=== PATIENT | male | born 1975 | race Caucasian/White ===

== ENCOUNTER 2020-04-02 12:25 | Inpatient (IN) | payer MEDICAID ==
[~2020-04-02] VITALS: Ht 180.3 cm; Wt 105.7 kg
[~2020-04-02 12:25] MED LIST: BUSP10TA10 PO; DIAZ10TA4 PO; ESCI20TA25 PO; GABA300C PO; OLAN2.5T3 PO; PANT-47 PO
[2020-04-02] MEDS ORDERED: NICO-631 TD (13:10)
[2020-04-02] MEDS ORDERED: metoprolol tartrate tablet PO (13:10)
[2020-04-02] MEDS ORDERED: acetaminophen 325mg tablet PO PRN ×2 (14:10)
[2020-04-02] MEDS ORDERED: NICOTINE POLACRILEX 2 MG LOZENGE BC PRN (14:10)
[2020-04-02] MEDS ORDERED: mag hydrox/Alum hydrox/simeth 30ml oral suspension PO PRN (14:10)
[2020-04-02] MEDS ORDERED: loperamide 2mg capsule PO PRN (14:10)
[2020-04-02] MEDS ORDERED: traZODone 50mg tablet PO PRN (14:10)
[2020-04-02] MEDS ORDERED: magnesium hydroxide 30ml (MOM) UD suspension PO PRN (14:10)
[2020-04-02 14:31] VITALS: BP 127/85
[2020-04-02 14:34] VITALS: BP 127/85
--- NOTE | 2020-04-02 16:51 | NUR ---
ADMIT NOTE Legal hold: 515 DTS Why are they here: Pt admitted at 1415 on 5150 for DTS. Pt is endorsing SI, Anxiety, and Depression, wanting to kill himself via OD or jumping off a bridge. Pt states he has never felt SI before even though he has a hx of a couple MH hospitalizations r/t run ins with the law in [place], they have a different way of doing things there and I spent some time in detention for minor crimes but was also hospitalized. Pt states he started feeling suicidal when living with his Dad in [place]; the primary trigger being ruminating about his relationship with his mother and the falling out he has with her. 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 He feels guilty about letting her down. He got out of the hospital in [place], moved to [place] then moved to [place] with friends but SI progressed and I just dont feel like myself anymore. I dont feel anything aside from irritability sometimes, my brain feels fuzzy, my memory is poor. And I am hearing voices saying things about me. Pt brought himself to the hospital seeking help for his emotional state. S/I, H/I:+SI A/VH: +AH, People having conversations about me Sleep: Reports Insomnia and Difficulty staying asleep ADL's: Independent Mental Status Exam Appearance: Freshly showered, wearing unit scrubs Eye contact: Good Speech: Normal Mood: Depressed, Anxious Affect: Blunted Thought process: Linear Thought Content: Feeling not himself Cognition: A/Ox4 Insight: Fair Judgment: Fair PRN's used: None MH Hx: Depression, Anxiety, R/O Bipolar "They were considering it but i don't have a formal diagnosis" Rec. Drug Use: No Alcohol Tobacco - Heavy, Daily Smoker THC, last use a month ago, Infrequent Meth - Couple years ago Opiates - Decade ago Support: Friends in [place], and [place] Estranged from family Medical Hx: HTN, Hyperlipidemia, GERD, Lactose Intolerant Recent [place] workup this visit prior to admit - r/t abnormal EKG, all other diagnostics WNL Addendum: 04/02/20 at 1717 by Vesta Goldman RN R Forearm Scars: Healed scars look like self-inflicted lacerations, but pt states he has never cut himself. "I was trying to harm my cat and she scratched me."
[2020-04-02] MEDS: LORazepam 1 MG tablet PO PRN (17:20)
[2020-04-02 19:00] VITALS: BP 141/89
--- NOTE | 2020-04-03 00:50 | NUR ---
Nursing Progress Note: Legal hold: 5150 Client on voluntary/involuntary status for DTS. Report received from nurseSerg with use of SBAR. Why are they here: Pt admitted at 1415 on 5150 for DTS. Pt is endorsing SI, Anxiety, and Depression, wanting to kill himself via OD or jumping off a bridge. Pt states he has never felt SI before even though he has a hx of a couple MH hospitalizations r/t run ins with the law in [place], they have a different way of doing things there and I spent some time in residential for minor crimes but was also hospitalized. Pt states he started feeling suicidal when living with his Dad in [place]; the primary trigger being ruminating about his relationship with his mother and the falling out he has with her. Diagnosis/presenting symptoms: Depression Assessment What has happened this shift: Pt isolated to his room for the entire shift. Pt was cooperative for all assessments and did not have any behavior issues. When asked how he was feeling, pt responded, pretty regretful. Pt did not have any hs meds scheduled and did not require any prns. S/I, H/I: denies A/VH: denies Sleep:see sleep assessment ADL's: independent Group attendance: n/a Were meds taken: yes Any med S/E: no Mental Status Exam Appearance:wnl, lying in bed in scrubs Eye contact: good Behavior: calm, cooperative Speech: clear, normal rate Mood: depressed Affect: congruent Thought process:feeling regretful Thought Content: regrets Cognition: a/o x4 Insight: fair Judgment: fair Interventions PRN's used: n/a Therapeutic interventions: 1:1 assessment, therapeutic communication, active listening, maintained a safe and therapeutic environment, medication administration/education/monitoring, monitoring of labs, behavior monitoring and intervention as needed, limit setting, redirection, positive reinforcement, and maintained Q 15 minute safety checks. Restraints/seclusion/emergency medication: N/A Justification of Continued Inpatient Treatment: The patient is continuing to be evaluated by the psychiatry staff. Self harm risk and external stressors to be evaluated.
[2020-04-03] MEDS: nicotine 14mg patch - 24hr TD SCH (07:50)
[2020-04-03] MEDS: LORazepam 1 MG tablet PO PRN ×3 (07:50→21:02)
[2020-04-03 08:00] VITALS: BP 152/91
--- NOTE | 2020-04-03 09:12 | NUR ---
PATIENT'S CAR IN PARKING STRUCTURE The patient was worried his car which he parked in the parking structure across the street may be towed. Hospital Security was called and informed and also [employer] [phone] (who also patrol the structure.) The Red Jenn Renegade with [employer] plates was seen on security cameras in the structure on the 2nd floor. 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 The patient was informed of phone calls made.
--- NOTE | 2020-04-03 10:30 | NUR ---
Cardiac diet consult: Likely consult error. Patient's lipid panel from 04/01 is WNL with the exception of LDL which is slightly elevated at 103 mg/dL. Education not warranted at this time. Malnutrition consult: Pt reports 24-33 lb wt loss with decreased appetite per malnutrition risk screen with RN. Pt just recently transferred from the floors where pt denied wt loss or decreased appetite per malnutrition risk screen with RN 04/01. Current documented scaled wt is 135% IBW. Pt eating well with 75-100% PO intake since 03/31. Pt with no documented edema or decrease in muscle strength. Per H&P 03/31 pt appears WDWN. Pt currently does not meet criteria for malnutrition. Will continue to follow. Addendum: 04/03/20 at [address] Amended: Links added.
[2020-04-03 11:00] LABS: HEMOGLOBIN A1C 5.8 % (4.5-6.2)
[2020-04-03 11:02] LABS: CHOL/HDL RATIO 3.9 (0.00-4.99); CHOLESTEROL 161 MG/DL (0-200); HDL CHOLESTEROL 41 MG/DL (35-60); LDL CHOLESTEROL 96 MG/DL (50-100); TRIGLYCERIDES 138 MG/DL (20-135)
--- NOTE | 2020-04-03 14:31 | NUR ---
NURSING PROGRESS NOTE Legal hold: 5150 Client on involuntary status for DTS. Report received from BARRERA Euceda with use of SBAR Why are they here: Pt admitted at 1415 on 5150 for DTS. Pt is endorsing SI, Anxiety, and Depression, wanting to kill himself via OD or jumping off a bridge. Pt states he has never felt SI before even though he has a hx of a couple MH hospitalizations r/t run ins with the law in [place], they have a different way of doing things there and I spent some time in [facility] for minor crimes but was also hospitalized. Pt states he started feeling suicidal when living with his Dad in [place]; the primary trigger being ruminating about his relationship with his mother and the falling out he has with her. Assessment What has happened this shift: Asleep at change of shift. Cooperative with VS and 1:1 assessment. Reports having CHAU "for years." Recently was in [place] with his mother then went to [place] to be with his father then came to [place] to visit a friend when he became quite depressed and had suicidal thoughts, chest pains and palpitations. He presented to ED and was admitted to PCU, cardiac ruled out and came to [facility] for depression and anxiety. He has NO hallucinations. Reports mild passive suicidal thoughts but c/o increased anxiety when around others like his peers on unit. Feels "anxious at meal times and with lots of people talking", and retreats to his room. C/O mild constipation for which he was given MOM, and given Ativan 1mg x2 today for anxiety. The patient has a Master's Degree in Organizational Leadership from [employer]. He is polite and cooperative. Per Dr. Denny he will be treated for CHAU. S/I, H/I: denies A/VH: denies Sleep:see napped ADL's: independent Group attendance: yes, process group Were meds taken: yes Any med S/E: no Mental Status Exam Appearance: neat and clean Eye contact: good Behavior: calm, cooperative with some anxiety Speech: clear, soft Mood: depressed Affect: mildly anxious Thought process: linear Thought Content: getting treated and feeling better Cognition: Alert Insight: fair Judgment: fair Interventions PRN's used: MOM, Ativan x2 Therapeutic interventions: 1:1 assessment, therapeutic communication, established rapport, active listening, maintained a safe and therapeutic environment, medication administration/education/monitoring, monitoring of labs, behavior monitoring and intervention as needed, encouraged to attend groups and maintained q15m safety checks. Restraints/seclusion/emergency medication: None Justification of Continued Inpatient Treatment: Requires interruption of current crisis, medication adjustments, and a safe and supportive environment to prevent readmission.
[2020-04-03 19:00] VITALS: BP 144/92
[2020-04-03] MEDS: traZODone 50mg tablet PO PRN (21:35)
[2020-04-03] MEDS: clonazePAM 0.5mg tablet PO SCH (21:35)
[2020-04-03] MEDS: pantoprazole 40mg Tablet.DR PO SCH (21:35)
[2020-04-03] MEDS: mirtazapine 15mg tablet PO SCH (21:35)
--- NOTE | 2020-04-04 01:26 | NUR ---
NURSING PROGRESS NOTE Legal hold: 5150 Client on involuntary status for DTS. Report received from BARRERA Johnson with use of SBAR Why are they here: Pt admitted on a 5150 for DTS. Pt is endorsing SI, Anxiety, and Depression, wanting to kill himself via OD or jumping off a bridge. Pt states he has never felt SI before even though he has a hx of a couple MH hospitalizations r/t run ins with the law in [place], they have a different way of doing things there and I spent some time in intermediate for minor crimes but was also hospitalized. Pt states he started feeling suicidal when living with his Dad in [place]; the primary trigger being ruminating about his relationship with his mother and the falling out he has with her. Assessment What has happened this shift: Pt in bed asleep at start of shift. Woke up later but declined to go for snack. He does not seem to interact with other pts. Pt concerned about medications. He became very anxious and paced in llanes. He holds his body in a very stiff and unnatural stance. He was concerned about medications that Dr. Denny said he would get but had not been ordered yet. Dr. Denny ordered medications for the pt and they were administered by 2129. Pt educated on medications he verbalized understanding. He went to bed and went to sleep. Is still sleeping at this time. S/I, H/I: denies A/VH: denies Sleep: Asleep at this time ADL's: independent Group attendance: NA Were meds taken: yes Any med S/E: no Mental Status Exam Appearance: neat and clean Eye contact: good Behavior: cooperative with some anxiety Speech: clear, soft Mood: depressed Affect: anxious Thought process: linear Thought Content: Medications Insight: fair Judgment: fair Interventions PRN's used: Ativan x1 Therapeutic interventions: 1:1 assessment, therapeutic communication, established rapport, active listening, maintained a safe and therapeutic environment, medication administration/education/monitoring, monitoring of labs, behavior monitoring and intervention as needed, encouraged to attend groups and maintained q15m safety checks. Restraints/seclusion/emergency medication: None Justification of Continued Inpatient Treatment: Requires interruption of current crisis, medication adjustments, and a safe and supportive environment to prevent readmission.
[2020-04-04 07:21] VITALS: BP 131/89
[2020-04-04] MEDS: clonazePAM 0.5mg tablet PO SCH ×2 (08:20→20:49)
[2020-04-04] MEDS: pantoprazole 40mg Tablet.DR PO SCH (08:20)
[2020-04-04] MEDS: nicotine 14mg patch - 24hr TD SCH (08:21)
[2020-04-04] MEDS ORDERED: tizanidine 4mg tablet PO PRN (09:50)
[2020-04-04 12:00] VITALS: BP 129/83
[2020-04-04] MEDS: propranolol 10mg tablet PO SCH ×2 (12:10→20:49)
[2020-04-04] MEDS: LORazepam 1 MG tablet PO PRN ×2 (15:16→20:50)
--- NOTE | 2020-04-04 16:38 | NUR ---
Nursing Progress Note: Legal hold: 515 Client on involuntary status for DTS Report received from nurse with use of SBAR: Kelli Reyna RN Why are they here: Pt admitted on 5150 for DTS. Pt is endorsing SI, Anxiety, and Depression, wanting to kill himself via OD or jumping off a bridge. Pt states he has never felt SI before even though he has a hx of a couple MH hospitalizations r/t run ins with the law in [place], they have a different way of doing things there and I spent some time in [facility] for [facility] but was also hospitalized. Pt states he started feeling suicidal when living with his dad in [place]; the primary trigger being ruminating about his relationship with his mother and the falling out he has with her. Assessment What has happened this shift: Received pt. in bed sleeping at the beginning of the shift, he was awoken by staff to attend breakfast in the Group Room and afterwards retreated back to bed where he continued to isolate throughout much of the day. This wrier introduced self and attempted to establish rapport, pt. presents as cooperative, fatigued, anxious, withdrawn, and guarded. 1:1 completed at bedside, his speech is soft and affect appears flat. Pt. denies any S/I, HI, or A/V/PA, however reports ongoing depression and anxiety. When this development writer attempted to question pt. further he appears to minimize and stated, "I just went through some mental health stuff. I just want to lay in bed and not be around anyone." Pt. admits that he just recently started Clonazepam and he is unsure if it is helping his anxiety yet. Pt. requests PRN Tylenol r/t pain in his shoulders and upper back due to laying in bed. He is provided encouragement to participate on the unit and is observed to be up pacing in the hallway in the afternoon after requesting PRN Ativan. Will continue to monitor. Dr. Denny gave new order for Propranolol 10mg TID r/t pt's history of HTN and anxiety, will endorse to Noc shift. S/I, H/I: Denies A/VH: Denies, does not appear internally preoccupied Sleep: Pt. reports he slept well, sleep hours are 7, and he naps intermittently throughout the shift ADL's: Requires encouragement Group attendance: N/A Were meds taken: Yes Any med S/E: None Mental Status Exam Appearance: Neat and appropriately dressed Eye contact: Good Behavior: Cooperative, fatigued, anxious, withdrawn, and guarded Speech: Soft, responds minimally to questions Mood: Guarded and anxious Affect: Flat Thought process: Poverty of thought with possible thought blocking Thought Content: Preoccupation with anxiety and hopelessness Cognition: A& O X4 Insight: Poor Judgment: Poor Interventions PRN's used: Ativan, Tylenol and Zanaflex Therapeutic interventions: Introduced self and attempted to establish rapport, maintained a safe and therapeutic environment, ensured contract for safety, provided clear and simple instructions, encouraged independent performance of ADLs and participation on the unit, and maintained Q 15min safety checks. Restraints/seclusion/emergency medication: N/A Justification of Continued Inpatient Treatment: Per Dr. Denny, pt. continues to require medication adjustments and a safe and supportive environment.
[2020-04-04 20:10] VITALS: BP 114/82
[2020-04-04] MEDS: mirtazapine 15mg tablet PO SCH (20:50)
[2020-04-04] MEDS: traZODone 50mg tablet PO PRN (20:50)
--- NOTE | 2020-04-05 02:58 | NUR ---
NURSING PROGRESS NOTE Legal hold: 5150 Client on involuntary status for DTS. Report received from RN with use of SBAR Why are they here: Pt admitted on a 5150 for DTS. Pt is endorsing SI, Anxiety, and Depression, wanting to kill himself via OD or jumping off a bridge. Pt states he has never felt SI before even though he has a hx of a couple MH hospitalizations r/t run ins with the law in [place], they have a different way of doing things there and I spent some time in intermediate for minor crimes but was also hospitalized. Pt states he started feeling suicidal when living with his Dad in [place]; the primary trigger being ruminating about his relationship with his mother and the falling out he has with her. Assessment What has happened this shift: Pt up pacing slowly in halls at start of shift. Came to group room for snack but did not interact with other pts. Spent most of shift isolated in room or pacing in halls. Pt presents as hopeless. Pt said he wants to go home. Encouraged to stay until he improves and is not having SI. Pt said "I am always suicidal." When told we hope we can help him to not feel that way he shrugged his shoulders. He was cooperative with care took all medications is sleeping at this time. S/I, H/I: denies A/VH: denies Sleep: Asleep at this time ADL's: independent Group attendance: NA Were meds taken: yes Any med S/E: no Mental Status Exam Appearance: neat and clean Eye contact: good Behavior: cooperative with some anxiety Speech: clear, soft Mood: depressed hopeless Affect: depressed Thought process: linear Thought Content: wants to go home Insight: poor Judgment: poor Interventions PRN's used: Trazodone Therapeutic interventions: 1:1 assessment, therapeutic communication, established rapport, active listening, maintained a safe and therapeutic environment, medication administration/education/monitoring, monitoring of labs, behavior monitoring and intervention as needed, encouraged to attend groups and maintained q15m safety checks. Restraints/seclusion/emergency medication: None Justification of Continued Inpatient Treatment: Requires interruption of current crisis, medication adjustments, and a safe and supportive environment to prevent readmission.
[2020-04-05] MEDS: LORazepam 1 MG tablet PO PRN ×2 (06:37→14:20)
[2020-04-05 07:33] VITALS: BP 128/86
[2020-04-05] MEDS: pantoprazole 40mg Tablet.DR PO SCH (08:34)
[2020-04-05] MEDS: propranolol 10mg tablet PO SCH ×3 (08:34→20:19)
[2020-04-05] MEDS: clonazePAM 0.5mg tablet PO SCH ×2 (08:34→20:18)
[2020-04-05] MEDS: tizanidine 4mg tablet PO PRN (08:35)
[2020-04-05] MEDS: nicotine 14mg patch - 24hr TD SCH (08:35)
[2020-04-05 12:44] VITALS: BP 112/77
--- NOTE | 2020-04-05 16:03 | NUR ---
Nursing Progress Note: Legal hold: 5250 Client on involuntary status for DTS Report received from nurse with use of SBAR: BARRERA Alcantara Why are they here: Pt admitted on 5150 for DTS. Pt is endorsing SI, Anxiety, and Depression, wanting to kill himself via OD or jumping off a bridge. Pt states he has never felt SI before even though he has a hx of a couple MH hospitalizations r/t run ins with the law in [place], they have a different way of doing things there and I spent some time in group home for minor crimes but was also hospitalized. Pt states he started feeling suicidal when living with his dad in [place]; the primary trigger being ruminating about his relationship with his mother and the falling out he has with her. Assessment What has happened this shift: Received pt. up in the hallway at the beginning of the shift, he approached this gag writer to request PRN Ativan for anxiety. When questioned by this gag writer regarding the cause of his anxiety, pt. gave a vague response and stated, "I just woke up anxious." PRN Ativan administered, and pt. was able to return to bed and was awoken later by staff to attend breakfast in the Group Room. Afterwards, pt. retreated back to bed where he continued to isolate throughout much of the morning. 1:1 completed at bedside, pt. continues to present as guarded, withdrawn, and hopeless. He denies any S/I, but admits to ongoing depression and anxiety. Pt. states, "The depression and anxiety go [id number]. I'm just feeing overwhelmed." Pt. reports a reduced appetite and some stomach upset, PRN Maalox administered with effectiveness. He does however report that he is sleeping much better. Pt. continues to report pain in his bilateral shoulders and upper back, PRN Zanaflex administered with effectiveness. Pt. is presented with his 5250 in the afternoon, and is then observed to up pacing the hallway interacting minimally with others. S/I, H/I: Denies A/VH: Denies, does not appear internally preoccupied Sleep: Pt. reports he slept well, sleep hours are 6.5, and he naps intermittently throughout the morning ADL's: Requires encouragement Group attendance: No Were meds taken: Yes Any med S/E: None Mental Status Exam Appearance: Neat and appropriately dressed Eye contact: Good Behavior: Cooperative, fatigued, anxious, withdrawn, and guarded Speech: Soft, responds minimally to questions Mood: Guarded and anxious Affect: Flat Thought process: Poverty of thought with possible thought blocking Thought Content: Preoccupation with anxiety and hopelessness Cognition: A& O X4 Insight: Poor Judgment: Poor Interventions PRN's used: AtivanX2 and Zanaflex Therapeutic interventions: Maintained a safe and therapeutic environment, ensured contract for safety, provided clear and simple instructions, encouraged independent performance of ADLs and participation on the unit, provided active listening and positive encouragement, presented with 5250 hold, and maintained Q 15min safety checks. Restraints/seclusion/emergency medication: N/A Justification of Continued Inpatient Treatment: Per Dr. Denny, pt. continues to require medication adjustments and a safe and supportive environment.
[2020-04-05 19:58] VITALS: BP 129/83
[2020-04-05] MEDS: mirtazapine 15mg tablet PO SCH (20:18)
--- NOTE | 2020-04-05 21:40 | NUR ---
Asked for patients nicotine patch but he states he doesn't want to take it off, he is aware it gives some people nightmares but he states he would like to keep it on.
--- NOTE | 2020-04-05 22:34 | NUR ---
Nursing Progress Note: Legal hold: 5250 Client on involuntary status for DTS Report received from nurse with use of SBAR: BARRERA Alcantara Why are they here: Pt admitted on 5150 for DTS. Pt is endorsing SI, Anxiety, and Depression, wanting to kill himself via OD or jumping off a bridge. Pt states he has never felt SI before even though he has a hx of a couple MH hospitalizations r/t run ins with the law in [place], they have a different way of doing things there and I [facility] but was also hospitalized. Pt states he started feeling suicidal when living with his dad in [place]; the primary trigger being ruminating about his relationship with his mother and the falling out he has with her. Assessment What has happened this shift: Pt was up walking in the hallway, interacting with peers. He is smiling and laughing but continues to report depression and anxiety. Pt gives minimal answers during assessment. Denies s/i but reports feeling anxious and states "they've been giving me all of my meds, can I just have them all at once?" Explained to patient prns are as needed and to let me know if he needs further meds after scheduled meds. Pt agrees to this and spends time socializing with another patient before going to bed. S/I, H/I: Denies A/VH: Denies, does not appear internally preoccupied Sleep: see sleep hours ADL's: Requires encouragement Group attendance: No Were meds taken: Yes Any med S/E: None Mental Status Exam Appearance: Neat and appropriately dressed Eye contact: Good Behavior: Cooperative, anxious, withdrawn, and guarded Speech: Soft, responds minimally to questions Mood: Guarded and anxious Affect: Flat Thought process: Poverty of thought with possible thought blocking Thought Content: Preoccupation with anxiety and hopelessness Cognition: A& O X4 Insight: Poor Judgment: Poor Interventions PRN's used: none Therapeutic interventions: Maintained a safe and therapeutic environment, ensured contract for safety, provided clear and simple instructions, encouraged independent performance of ADLs and participation on the unit, provided active listening and positive encouragement, presented with 5250 hold, and maintained Q 15min safety checks. Restraints/seclusion/emergency medication: N/A Justification of Continued Inpatient Treatment: Per Dr. Denny, pt. continues to require medication adjustments and a safe and supportive environment. Addendum: 04/06/20 at 0119 by Belkis Reynoso RN Pt approached the nurses station agitated with raised voice "I dont need you're little games, I want my trazadone and ativan NOW! this is the second time I've asked for it! My name is Emmanuel!" Pt was out of bed earlier talking with another patient loudly in the hallway and was told by charge nurse they could not be in the hallway being loud as they were waking other patients. Pt yelled at charge nurse "you dont know anything you just got here! dont act like you can tell people what do!" Pt went to his room after that outburst and had been sleeping. Earlier during the shift, he was out in the llanes talking to other nurses and techs while I was doing an admit and yelled and pointed "She's my nurse!" while I was with another patient. Pt had been in his room according to q15 chart he had been sleeping.
[2020-04-06] MEDS: LORazepam 1 MG tablet PO PRN ×2 (01:06→10:00)
[2020-04-06] MEDS: traZODone 50mg tablet PO PRN ×2 (01:06→21:04)
[2020-04-06 07:07] VITALS: BP 127/75
[2020-04-06] MEDS: pantoprazole 40mg Tablet.DR PO SCH (08:23)
[2020-04-06] MEDS: propranolol 10mg tablet PO SCH ×3 (08:24→21:04)
[2020-04-06] MEDS: clonazePAM 1mg tablet PO SCH (08:24)
[2020-04-06] MEDS: tizanidine 4mg tablet PO PRN (08:24)
[2020-04-06] MEDS: nicotine 14mg patch - 24hr TD SCH (08:24)
--- NOTE | 2020-04-06 10:38 | NUR ---
Nursing Progress Note: Legal hold: 5250 Client on involuntary status for DTS Report received from nurse with use of SBAR: BARRERA Smith Why are they here: Pt admitted on 5150 for DTS. Pt is endorsing SI, Anxiety, and Depression, wanting to kill himself via OD or jumping off a bridge. Pt states he has never felt SI before even though he has a hx of a couple MH hospitalizations r/t run ins with the law in [place], they have a different way of doing things there and I spent some time in [facility] for minor crimes but was also hospitalized. Pt states he started feeling suicidal when living with his dad in [place]; the primary trigger being ruminating about his relationship with his mother and the falling out he has with her. Assessment What has happened this shift: Received pt. sleeping at the beginning of the shift, he awoke for breakfast in the Group Room. Afterwards, pt. did not retreat back to bed he has done previously. Pt. greeted this speech writer animatedly and his affect appeared brighter, he stated, "I'm doing well!" 1:1 completed, pt. continues to deny any S/I and reports his depression has improved, however he continues to endorse anxiety but believes his medications are helping. When questioned by this speech writer regarding the cause of his anxiety, he states, "I'm just nervous about discharge." Pt. reports he understands that follow-up appointments need to be made, and he plans to return to living with his friend. This speech writer provided positive encouragement to pt. about participating more on the unit and socializing with others, and he reported that he plans to attend group this afternoon after taking PRN anxiolytic 30min prior r/t his ongoing struggle with social anxiety. Also, education provided to pt. by this speech writer and MD that pt. may not concurrently request Ativan with his scheduled Clonazepam. Pt. reported understanding, however reports in a somewhat paranoid way that he felt like the forestry extension specialist staff was "Playing games" with him last night regarding his medications. Pt. appeared anxious and restless throughout the morning and was observed to be up pacing in the hallway interacting with others and making various telephone calls. He states, "I could be here forever because no one in helping me to figure out my follow-up!" Pt. was assured multiple times by staff that his follow-up is being looked into by the social worker health services, however he continued to present with anxiety. PRN Ativan administered and will continue to monitor. S/I, H/I: Denies A/VH: Denies, does not appear internally preoccupied Sleep: Pt. reports he slept restlessly last night, sleep hours are 5.45 ADL's: Independent Group attendance: Pt. reports he plans to attend afternoon group, will take PRN Ativan prior to help control social anxiety Were meds taken: Yes Any med S/E: None Mental Status Exam Appearance: Neat and appropriately dressed Eye contact: Good Behavior: Cooperative, anxious, restless, and guarded Speech: Soft, WNL Mood: Restless and anxious Affect: Flat Thought process: Poverty of thought Thought Content: Preoccupation with ongoing anxiety and desire to discharge Cognition: A& O X4 Insight: Poor Judgment: Fair Interventions PRN's used: Ativan X2 and Zanaflex Therapeutic interventions: Maintained a safe and therapeutic environment, ensured contract for safety, provided clear and simple instructions, encouraged participation on the unit, provided active listening and positive encouragement, monitored behaviors and need for intervention, and maintained Q 15min safety checks. Restraints/seclusion/emergency medication: N/A Justification of Continued Inpatient Treatment: Per Dr. Denny, pt. continues to have significant anxiety and requires time for medications to reach optimal effects and a safe and supportive environment. He remains at high risk for discharge and will require the arrangement of outpatient follow-up.
--- NOTE | 2020-04-06 11:49 | NUR ---
Initial: Pt admit DX MDD, SI, and CHAU per MD note. PO 75-100% avg regular diet meeting needs. LBM 04/05. No nutrition concerns at this time. Will continue to monitor. Rec: 1. continue regular diet 2. bowel care per rx 3. wts per rx Addendum: 04/06/20 at [address] Amended: Links added.
[2020-04-06 13:00] VITALS: BP 136/88
--- NOTE | 2020-04-06 16:41 | NUR ---
Discharge Follow-Up: Pt. called and was able to set up his own follow-up appointment with [facility] in [place]. This appointment is for April 22, at 1600 with MARCIA Solano. Endorsed to Dr. Denny.
[2020-04-06 19:20] VITALS: BP 118/72
[2020-04-06] MEDS: mirtazapine 15mg tablet PO SCH (21:03)
[2020-04-06] MEDS: clonazePAM 0.5mg tablet PO SCH (21:03)
--- NOTE | 2020-04-06 22:01 | NUR ---
Nursing Progress Note: Legal hold: 525 Client on involuntary status for DTS Report received from nurse with use of SBAR: Sarah RN Why are they here: Pt admitted on 5150 for DTS. Pt is endorsing SI, Anxiety, and Depression, wanting to kill himself via OD or jumping off a bridge. Pt states he has never felt SI before even though he has a hx of a couple MH hospitalizations r/t run ins with the law in [place], they have a different way of doing things there and I spent some time in group home for minor crimes but was also hospitalized. Pt states he started feeling suicidal when living with his dad in [place]; the primary trigger being ruminating about his relationship with his mother and the falling out he has with her. Assessment What has happened this shift: Pt was in the hallway walking with other patients at change of shift. He paces in the hallway engaging with peers minimally. Pt is quiet and seems to isolate to himself this evening. Pt requested sleep aid with his scheduled meds and went to sleep after snacks and med pass. S/I, H/I: Denies A/VH: does not appear internally preoccupied Sleep: see sleep hours ADL's: Independent Group attendance: no evening groups Were meds taken: Yes Any med S/E: None Mental Status Exam Appearance: Neat and appropriately dressed Eye contact: Good Behavior: Cooperative, anxious, restless, and guarded Speech: Soft, WNL Mood: Restless and anxious Affect: blunted Thought process: Poverty of thought Thought Content: Preoccupation with ongoing anxiety and desire to discharge Cognition: A& O X4 Insight: Poor Judgment: Fair Interventions PRN's used: trazodone Therapeutic interventions: Maintained a safe and therapeutic environment, ensured contract for safety, provided clear and simple instructions, encouraged participation on the unit, provided active listening and positive encouragement, monitored behaviors and need for intervention, and maintained Q 15min safety checks. Restraints/seclusion/emergency medication: N/A Justification of Continued Inpatient Treatment: Per Dr. Denny, pt. continues to have significant anxiety and requires time for medications to reach optimal effects and a safe and supportive environment. He remains at high risk for discharge and will require the arrangement of outpatient follow-up.
[2020-04-07 07:22] VITALS: BP 124/76
[2020-04-07] MEDS: propranolol 10mg tablet PO SCH ×2 (08:28→12:59)
[2020-04-07] MEDS: clonazePAM 1mg tablet PO SCH (08:28)
[2020-04-07] MEDS: pantoprazole 40mg Tablet.DR PO SCH (08:28)
[2020-04-07] MEDS: nicotine 14mg patch - 24hr TD SCH (08:29)
[2020-04-07] MEDS ORDERED: PROP10TA10 PO (13:17)
[2020-04-07] MEDS ORDERED: TRAZ-251 PO (13:17)
[2020-04-07] MEDS ORDERED: PANT40TA54 PO (13:17)
[2020-04-07] MEDS ORDERED: MIRT-67 PO (13:17)
[2020-04-07] MEDS ORDERED: CLON0.5T4 PO (13:17)
[2020-04-07] MEDS ORDERED: NICO-631 TD (13:17)
--- NOTE | 2020-04-07 14:07 | NUR ---
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 Patient is calm and cooperative and happy to be leaving. RN gave patient discharge instructions. Patient verbalized understanding. All questions were answered. Patient has all his belongings. Patient ambulatory, steady gait with all his belongings with [employer]. Patient's car is in the parking lot and patient is driving himself home..
== END 2020-04-07 14:10 | disposition home or self-care (01) | DRG 751 ==
LOC: ADULT MH 12:45
PROVIDERS: ADMIT Psychiatry & Neurology Psychiatry; ATTEND Psychiatry & Neurology Psychiatry
DX: F33.2 Major depressive disorder, recurrent severe without psychotic features (principal); R45.851 Suicidal ideations; F41.1 Generalized anxiety disorder; I10 Essential (primary) hypertension; F17.210 Nicotine dependence, cigarettes, uncomplicated
CPT/HCPCS: 36415; 80061; 83036